=== PATIENT | female | born 1960 | race Asian ===

== ENCOUNTER 2019-08-12 18:52 | Outpatient (CLI) | payer OTHER | END 2019-08-12 18:53 | disposition critical access hospital (66) | LOC: EMS 18:52 | PROVIDERS: ATTEND Surgery | DX: S00.93XA Contusion of unspecified part of head, initial encounter (principal); W18.39XA Other fall on same level, initial encounter; Y93.69 Activity, other involving other sports and athletics played as a team or group; Y92.213 High school as the place of occurrence of the external cause | CPT/HCPCS: A0425; A0429 ==

== ENCOUNTER 2019-08-12 19:09 | Emergency (ER) | payer OTHER ==
[2019-08-12] MEDS ORDERED: ONDANSETRON ODT 4 MG TABLET TL STA (19:18)
--- NOTE | 2019-08-12 19:40 | ED Physician Documentation ---
History of Present Illness - Stated complaint Stated Complaint: FALL - Chief complaint Chief Complaint: Trauma Hd/Nk - History obtained from History obtained from: Patient, Family, EMS - History of Present Illness Timing: Today Pain level max: 8 Pain level now: 4 - Additonal information Additional information: 59-year-old female was playing tennis today when she swung at a ball, missed, fell backwards and landed on the back of her head and neck. Has had nausea since then. Emesis x1. No back pain. She was placed on a backboard by EMS. No shoulder pain. No hip pain. No knee pain. No other injuries. Does not take blood thinners. Worse with movement and better with rest. Review of Systems Ten Systems: 10 systems reviewed and negative Constitutional: denies: Fever, Chills Ears: denies: Ear pain, Drainage/discharge Nose: denies: Rhinorrhea / runny nose, Congestion Throat: denies: Sore throat Cardiac: denies: Chest pain / pressure Respiratory: denies: Dyspnea, Cough GI: denies: Abdominal Pain : denies: Dysuria Skin: denies: Rash Musculoskeletal: denies: Back pain Neurologic: denies: Focal weakness, Numbness, Confused, LOC PD PAST MEDICAL HISTORY - Past Medical History Cardiovascular: Hypertension, High cholesterol - Present Medications Home Medications: Ambulatory Orders Medication Instructions Recorded Confirmed Atenolol [Tenormin] 50 mg DAILY 08/12/19 08/12/19 Meloxicam [Mobic] 15 mg PO DAILY PRN #20 tablet 08/12/19 Ondansetron Odt [Zofran] 4 mg TL Q6H PRN #10 tablet 08/12/19 - Allergies Allergies/Adverse Reactions: Allergies Allergy/AdvReac Type Severity Reaction Status Date / Time No Known Drug Allergies Allergy Verified 08/12/19 19:15 - Social History Does the pt smoke?: No Smoking Status: Never smoker PD ED PE NORMAL - Vitals Vital signs reviewed: Yes - General General: Alert and oriented X 3, No acute distress, Well developed/nourished - HEENT HEENT: PERRL, EOMI, Moist mucous membranes, Other (Small occipital hematoma. No palpable skull fractures. No active bleeding. ) - Neck Neck: Supple, no meningeal sign, Other (Mild midline tenderness to palpation. 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 No intracranial abnormality. No skull fracture.) Cervical spine CT Radiology: Prelim report reviewed, EMP read contemporaneously, See rad report (No acute bony abnormality) PD MEDICAL DECISION MAKING - ED course Complexity details: reviewed results, re-evaluated patient, considered differential, d/w patient, d/w family ED course: Patient with a closed head injury, likely concussion. Feels better after Zofran. Will prescribe this for home. Head injury instructions given at bedside. No acute findings on head CT or cervical spine CT other than an occipital hematoma. She is not on blood thinners. Patient and family counseled regarding signs and symptoms for which I believe and urgent re-evaluation would be necessary. Patient with good understanding of and agreement to plan and is comfortable going home at this time This document was made in part using voice recognition software. While efforts are made to proofread this document, sound alike and grammatical errors may occur. Departure - Departure Disposition: 01 Home, Self Care Clinical Impression: Head injury Qualifiers: Encounter type: initial encounter Qualified Code(s): S09.90XA - Unspecified injury of head, initial encounter Scalp hematoma Qualifiers: Encounter type: initial encounter Qualified Code(s): S00.03XA - Contusion of scalp, initial encounter Concussion Qualifiers: Encounter type: initial encounter Loss of consciousness presence/duration: without LOC Qualified Code(s): S06.0X0A - Concussion without loss of consciousness, initial encounter Condition: Good Instructions: ED Head Injury Closed, ED Hematoma Follow-Up: Your,doctor in 1 week [Other] Prescriptions: Meloxicam [Mobic] 15 mg PO DAILY PRN #20 tablet PRN Reason: pain Ondansetron Odt [Zofran] 4 mg TL Q6H PRN #10 tablet PRN Reason: Nausea / Vomiting Comments: There are no acute findings on your head CT or cervical spine CT today. You do have a hematoma on the back of your head that should decrease over time. Return if you worsen. You do not need to wake her up tonight. She can sleep.
--- NOTE | 2019-08-12 19:53 | CT Report ---
Reason: fall, head pain Procedure Date: 08/12/2019 Accession Number: [id number] / [id number] Procedure: CT - HEAD WO CPT Code: Final Report FULL RESULT: PROCEDURE: HEAD WO INDICATIONS: fall, head pain TECHNIQUE: Noncontrast 4.5 mm thick angled axial sections acquired from the foramen magnum to the vertex. For radiation dose reduction, the following was used: automated exposure control, adjustment of mA and/or kV according to patient size. COMPARISON: None. FINDINGS: Image quality: Excellent. CSF spaces: Basal cisterns are patent. No extra-axial fluid collections. Ventricles are normal in size and shape. Brain: No midline shift. No intracranial masses or hemorrhage. Luciano-white matter interface is normal. Skull and face: Posterior midline scalp hematoma. Calvarium and visualized facial bones are intact, without suspicious lesions. Sinuses: Visualized sinuses and mastoids are clear. IMPRESSION: Posterior midline scalp hematoma. No underlying fracture. No acute intracranial hemorrhage. Reviewed by: Hemanth Wolf MD on 08/12/2019 7:52 PM PDT Approved by: Hemanth Wolf MD on 08/12/2019 7:52 PM PDT Station ID: [id number]
--- NOTE | 2019-08-12 19:56 | CT Report ---
Reason: fall, neck pain Procedure Date: 08/12/2019 Accession Number: [id number] / [id number] Procedure: CT - CERVICAL SPINE WO CPT Code: Final Report FULL RESULT: PROCEDURE: CERVICAL SPINE WO INDICATIONS: fall, neck pain TECHNIQUE: Noncontrast 3 mm thick sections acquired from the skull base to the T4 level. Sagittal and coronal reformats were then constructed. For radiation dose reduction, the following was used: automated exposure control, adjustment of mA and/or kV according to patient size. COMPARISON: Same day head CT. FINDINGS: Image quality: Excellent. Bones: No fractures or dislocations. Visualized superior ribs are intact. Moderate degenerative change in the cervical spine. Soft tissues: Prevertebral soft tissues are normal in thickness. No paravertebral hematomas. No apical pneumothoraces. IMPRESSION: No acute osseous abnormality. Reviewed by: Hemanth Wolf MD on 08/12/2019 7:54 PM PDT Approved by: Hemanth Wolf MD on 08/12/2019 7:54 PM PDT Station ID: [id number]
[2019-08-12] MEDS ORDERED: ACETAMINOPHEN 325 MG TABLET PO STA (20:09)
[2019-08-12] MEDS ORDERED: ONDANSETRON ODT 4 MG Prepack 2 TL PRN (20:09)
[2019-08-12 20:28] VITALS: BP 156/80
== END 2019-08-12 20:28 | disposition home or self-care (01) ==
LOC: ED 19:09
DX: S06.0X0A Concussion without loss of consciousness, initial encounter (principal); S00.03XA Contusion of scalp, initial encounter; M54.2 Cervicalgia; W01.0XXA Fall on same level from slipping, tripping and stumbling without subsequent striking against object, initial encounter; Y93.73 Activity, racquet and hand sports; Y92.312 Tennis court as the place of occurrence of the external cause
CPT/HCPCS: 70450; 72125; 99284; A9270; Q0162

== ENCOUNTER 2019-09-26 08:13 | Outpatient (CLI) | payer OTHER ==
--- NOTE | 2019-09-26 10:48 | MRI Report ---
PROCEDURE: Brain W/O INDICATIONS: HEAD INJURY TECHNIQUE: Noncontrast axial T1 spin echo, axial T2 fast spin echo, sagittal and axial FLAIR, coronal T2 fast sp in echo, axial gradient echo, axial diffusion and ADC through the brain. COMPARISON: None. FINDINGS: Image quality: Excellent. CSF Spaces: Basal cisterns are patent. No extra-axial fluid collections. Ventricles are normal in size and shape. Brain: No intracranial masses or hemorrhage. Luciano/white matter interface is normal. Minimal frontal subcortical and periventricular white matter chronic microvascular ischemic change. Brainstem appear s normal. Diffusion-weighted images demonstrate no acute ischemic insult. No GRE weighted abnormalit ies identified in the brain parenchyma. No chronic ischemic insults. Normal intravascular flow voids are present. Skull and face: Calvarium has normal marrow signal. Orbits appear normal. Sinuses: Sinuses and mastoids are clear. IMPRESSION: 1. No acute intracranial disease process. 2. No abnormal mass or mass effect. 3. No areas of acute or chronic infarction. 4. No intracranial hemorrhage. 5. Minimal bilateral frontal subcortical and periventricular white matter chronic microvascular ische zack change. Reviewed by: Halina Valentin MD, PhD on 09/26/2019 10:47 AM PDT Approved by: Halina Valentin MD, PhD on 09/26/2019 10:47 AM PDT Station ID: [id number]
== END 2019-09-26 08:14 | disposition home or self-care (01) ==
LOC: DI 08:13
PROVIDERS: ATTEND Family Medicine
DX: S09.90XA Unspecified injury of head, initial encounter (principal)
CPT/HCPCS: 70551

== ENCOUNTER 2020-09-09 11:53 | Emergency (ER) | payer OTHER ==
--- NOTE | 2020-09-09 12:27 | XRAY Report ---
PROCEDURE: Chest 1 View X-Ray INDICATIONS: Chest Pain TECHNIQUE: One view of the chest was acquired. COMPARISON: None FINDINGS: Surgical changes and devices: None. Lungs and pleura: No pleural effusions or pneumothorax. Lungs are clear. Mediastinum: Mediastinal contours appear normal. Heart size is highly prominent. Bones and chest wall: No suspicious bony lesions. Overlying soft tissues appear unremarkable. IMPRESSION: No acute pulmonary process. Reviewed by: Tala Potter MD on 09/09/2020 12:26 PM PDT Approved by: Tala Potter MD on 09/09/2020 12:26 PM PDT Station ID: [id number]
--- NOTE | 2020-09-09 12:34 | ED Physician Documentation ---
PD HPI CHEST PAIN - Stated complaint Stated Complaint: CHEST PX/JAW PX - Chief complaint Chief Complaint: Cardiac - History obtained from History obtained from: Patient, Family - History of Present Illness Timing - onset: Today Pain level max: 4 Pain level now: 0 Quality: Pressure, Tightness Location: Substernal Radiation: Jaw Improved by: Rest Worsened by: Exertion (walking up a hill last night.) Associated symptoms: Shortness of air, Nausea. No: Diaphoresis, Vomiting, Feeling faint / dizzy, General Weakness, Palpitations, Cough Recently seen: Not recently seen - Additional information Additional information: 60-year-old female presents to the emergency department complaining of chest pain. This is been intermittent for the past 2 to 3 years but has been increasing in frequency over the past several months. She states that occurs 2- 3 times per week now. Usually it occurs when she is exerting herself. Radiates to the bilateral jaw. Last for about 10 to 15 minutes at a time. She did have a negative cardiac stress test several years ago in [place]. Has not seen a laborer powerhouse here. Last night she had the pain occurred while walking uphill, it did resolve as usual in about 15 minutes. She states that it occurred as she was going to bed last night as well, and it is not common for it to occur at rest. She states that she called her primary care doctor today at the [facility] and was instructed to come here for evaluation. Currently asymptomatic. Review of Systems Ten Systems: 10 systems reviewed and negative Constitutional: denies: Fever, Chills Ears: denies: Ear pain Nose: denies: Rhinorrhea / runny nose, Congestion Throat: denies: Sore throat Cardiac: denies: Palpitations, Calf pain Respiratory: denies: Cough, Wheezing GI: denies: Abdominal Pain, Nausea, Vomiting Skin: denies: Rash Musculoskeletal: denies: Neck pain, Back pain Neurologic: denies: Headache PD PAST MEDICAL HISTORY - Past Medical History Past Medical History: Yes Cardiovascular: Hypertension, High cholesterol - Present Medications Home Medications: Ambulatory Orders Medication Instructions Recorded Confirmed Atenolol [Tenormin] 50 mg DAILY 08/12/19 08/12/19 Meloxicam [Mobic] 15 mg PO DAILY PRN #20 tablet 08/12/19 Ondansetron Odt [Zofran] 4 mg TL Q6H PRN #10 tablet 08/12/19 - Allergies Allergies/Adverse Reactions: Allergies Allergy/AdvReac Type Severity Reaction Status Date / Time No Known Drug Allergies Allergy Verified 09/09/20 12:03 - Social History Does the pt smoke?: No Smoking Status: Never smoker PD ED PE NORMAL - Vitals Vital signs reviewed: Yes - General General: Alert and oriented X 3, No acute distress - HEENT HEENT: PERRL, Moist mucous membranes - Neck Neck: Supple, no meningeal sign, No JVD, No bruit - Cardiac Cardiac: RRR, No murmur, Strong equal pulses - Respiratory Respiratory: No respiratory distress, Clear bilaterally - Abdomen Abdomen: Soft, Non tender, Non distended - Back Back: No spinal TTP - Derm Derm: Warm and dry - Extremities Extremities: No edema, No calf tenderness / cord - Neuro Neuro: Alert and oriented X 3 - Psych Psych: Normal mood, Normal affect Results - Vitals Vitals: Vital Signs - 24 hr 09/09/20 09/09/20 11:57 13:43 Temperature 36.6 C 36.5 C Heart Rate 74 73 Respiratory 20 27 H Rate Blood Pressure 141/66 H 142/64 H O2 Saturation 100 100 Oxygen O2 Source Room air - EKG (time done) 1157 Rate: Rate (enter#) (73) Rhythm: NSR [place]: Normal Intervals: Normal TN QRS: Normal Ischemia: Normal ST segments - Labs Labs: Laboratory Tests 09/09/20 09/09/20 09/09/20 12:35 12:35 12:35 WBC 5.7 RBC 4.67 Hgb 12.6 Hct 38.3 MCV 82.0 MCH 27.0 MCHC 32.9 RDW 12.7 Plt Count 141 MPV 10.1 Neut # (Auto) 2.6 Lymph # (Auto) 2.1 [place] # (Auto) 0.7 Eos # (Auto) 0.3 Baso # (Auto) 0.0 Absolute Nucleated RBC 0.00 Nucleated RBC % 0.0 Sodium 136 Potassium 4.0 Chloride 102 Carbon Dioxide 25 Anion Gap 9.0 BUN 22 H Creatinine 0.7 Estimated GFR (MDRD) 85 L Glucose 137 H Calcium 9.5 Total Bilirubin 0.9 AST 42 ALT 63 H Alkaline Phosphatase 59 Troponin I High Sens 7.1 Total Protein 7.6 Albumin 4.3 Globulin 3.3 Albumin/Globulin Ratio 1.3 Lipase 59 H - Rads (name of study) cxr Radiology: Prelim report reviewed, EMP read contemporaneously, See rad report (no acute abnormality.) PD MEDICAL DECISION MAKING - ED course Complexity details: reviewed results, re-evaluated patient, considered differential (No ST elevation [place], no aortic dissection, no PE, no tension pneumothorax, no aortic aneurysm), d/w patient ED course: Patient is asymptomatic care. She will need a cardiac stress test. Recommend that she avoid exertion. We will increase her aspirin from baby aspirin to a full aspirin. She states that she has an appointment with her doctor tomorrow. They can schedule a cardiac stress test then. Patient is well-appearing, nontoxic. Afebrile. No hypoxia. No respiratory distress. No recurrent symptoms. Patient counseled regarding signs and symptoms for which I believe and urgent re-evaluation would be necessary. Patient with good understanding of and agreement to plan and is comfortable going home at this time This document was made in part using voice recognition software. While efforts are made to proofread this document, sound alike and grammatical errors may occur. Departure - Departure Disposition: 01 Home, Self Care Clinical Impression: Chest pain Qualifiers: Chest pain type: unspecified Qualified Code(s): R07.9 - Chest pain, unspecified Condition: Good Instructions: Angina Dc Follow-Up: your,doctor this week [Other] Comments: We will increase you to a full aspirin daily. You need to have a cardiac stress test scheduled this week by your doctor. Return if your symptoms worsen or recur. Your testing is normal today. Please call your primary care clinic after you leave here today to schedule a cardiac stress test for this week. It is importantly you follow-up with a laborer powerhouse as well. Discharge Date/Time: 09/09/20 13:56
[2020-09-09 12:38] LABS: BASOPHILS % (AUTO) 0.3 %; EOSINOPHILS # (AUTO) 0.3 10^3/uL (0.0-0.7); EOSINOPHILS % (AUTO) 4.5 %; HCT - HEMATOCRIT 38.3 % (37.0-47.0); HGB - HEMOGLOBIN 12.6 g/dL (12.0-16.0); LYMPHOCYTES # (AUTO) 2.1 10^3/uL (1.5-3.5); LYMPHOCYTES % (AUTO) 37.4 %; MEAN CORPUSCULAR HGB CONC 32.9 g/dL (32.0-36.0); MEAN PLATELET VOLUME 10.1 fL (7.9-10.8); MONOCYTES # (AUTO) 0.7 10^3/uL (0.0-1.0); MONOCYTES % (AUTO) 12.1 %; NEUTROPHILS # (AUTO) 2.6 10^3/uL (1.5-6.6); NEUTROPHILS % (AUTO) 45.5 %; PLT - PLATELET COUNT 141 10^3/uL (130-450); RED BLOOD COUNT 4.67 10^6/uL (4.20-5.40); RED CELL DISTRIBUTION WIDTH 12.7 % (12.0-15.0); WHITE BLOOD COUNT 5.7 x10^3/uL (4.8-10.8)
[2020-09-09 12:56] LABS: ALBUMIN 4.3 g/dL (3.2-5.5); ALBUMIN/GLOBULIN RATIO 1.3 (1.0-2.2); BILIRUBIN,TOTAL 0.9 mg/dL (0.2-1.0); CALCIUM 9.5 mg/dL (8.5-10.3); CREATININE 0.7 mg/dL (0.4-1.0); TOTAL PROTEIN 7.6 g/dL (6.7-8.2)
[2020-09-09 13:43] VITALS: BP 142/64
== END 2020-09-09 13:56 | disposition home or self-care (01) ==
LOC: ED 11:53
DX: R07.9 Chest pain, unspecified (principal)
CPT/HCPCS: 36415; 80053; 83690; 84484; 85025; 93005; 99284